=== PATIENT | male | born 1960 | race Caucasian/White ===

== ENCOUNTER → 2017-10-16 | Outpatient (CLI) | payer OTHER ==
[~2017-10-16] VITALS: Ht 180.3 cm; Wt 68.0 kg
[~2017-10-16] MED LIST: ACYCLOVIR 400400 MG PO; BACTRIM DS TAB1 EACH PO; CALCIUM CITRAT1 EA16 PO; GABAPENTIN 100100 MG PO; HYDROCHLOROTHIA25 M2 PO; ONDANSETRON HCL8 M2 PO; SERTRALINE HCL100 MG PO; VALIUM5 MG PO; VITAMIN D2000 UNIT PO; VITAMIN D31000 UNIT PO; VOLTAREN GEL 1100 G2 TOP
--- NOTE | ~2017-10-16 | HPC ---
[facility] [address] [place] [address] PAIN MANAGEMENT CONSULTATION Name: CINDYRADU FAYE Room #: REG [facility] M..#: [id number] Admission: 10/16/17 Attend Phys: Radu Schneider MD Discharge: Date of : 62 Report #: [id number] THIS REPORT FOR: //name// CC: Department of Oncology at [facility] FAM unknown MARIALUISA CHEN KAMBHAMPATI DATE OF SERVICE: 10/16/2017 CHIEF COMPLAINT: Intermittent abdominal pain and back pain occurring around the time of chemotherapy for mantle cell lymphoma. The patient is a 57-year-old gentleman with back pain, sent to us by the [facility] for evaluation. He reports of his pain clinic visit that he is not sure why he is here and he does not want medication of an opioid type to treat intractable pain from his mantle cell lymphoma. He was diagnosed in 2018 with mantle cell lymphoma. It was found after 4 or 5 years of back pain. He scores his pain as a 2/10 despite the fact that he does not use medication. He describes it as a periodic, cramping, aching sensation. What he notes is that when he gets chemotherapy, which occurs about once a month over the course of 2 days, he has pain in his lumbar region with a spasm-like pain and also a sense of nausea is accompanied by pain that he describes in his intestines his abdomen. It usually improves after the chemotherapy and he is able to return to work. He has an upcoming course of chemotherapy. Usually it is about 2 days after when these symptoms began, although last time, he was receiving his chemotherapy, he had back pain. CURRENT MEDICATIONS: Calcium citrate, diclofenac gel, gabapentin, sertraline, hydrochlorothiazide, ondansetron, acyclovir, sulfamethoxazole, cholecalciferol vitamin D. ALLERGIES: None. PAST MEDICAL HISTORY: Positive for neck surgery in 1994, left femoral injury in 1985, left knee replacement in 2016. Right groin node was diagnosed after growing in April 2017 and found to contain cells consistent with mantle cell lymphoma. He is treated also for hypertension. SOCIAL HISTORY: He is single, . Does not use tobacco, alcohol and has no history of misuse or abuse of any drugs of an illicit type. Denies use of marijuana or other illicit substance. He works at [employer], currently working filling hand. He did take some time off after his diagnosis. [facility] [address] [place] [address] PAIN MANAGEMENT CONSULTATION Name: RADU WHITE FAYE Room #: REG CLI [facility]#: [id number] Admission: 10/16/17 Attend Phys: Radu Schneider MD Discharge: Date of : 62 Report #: [id number] REVIEW OF SYSTEMS: Positive for fatigue, weakness, night sweats, decreased appetite, weight loss. He has some hearing loss, loss of appetite, constipation and oftentimes following his chemotherapy, he will have some increase in stool followed by what he describes as a sloughing of tumor tissue with yellow mucus plugging. He is having some sexual difficulties and has suffered with nervousness, depression, insomnia reactive to his cancer. PHYSICAL EXAMINATION: GENERAL: He is very pleasant, lean, 57-year-old, 5 feet 11 inches, 150 pounds. BMI is 20.9. VITAL SIGNS: Blood pressure is 137/84, heart rate is 80, respirations 14. CHEST: Clear. CARDIAC: Rhythm is regular. ABDOMEN: Soft. EXTREMITIES: There is no hepatosplenomegaly. There are no palpable masses. There are no rashes. BACK: Nontender. MUSCULOSKELETAL: Good range of motion of the lumbar spine is noted. Straight leg raising is normal. Sensory and strength testing of the lower extremities is within normal limits. Deep tendon reflexes are 2+ throughout the upper and lower extremities. IMPRESSION: Mantle cell lymphoma. Abdominal and low back pain associated with chemotherapy treatment. RECOMMENDATIONS: He may benefit from the muscle relaxant benefits as well as an anxiolysis and the relaxant properties from diazepam 5 mg taken before his chemotherapy or during. The sedative effects of the benzodiazepine were noted. He was given a prescription for 30 tablets and 2 refills. Followup visit planned only as needed. <ELECTRONICALLY SIGNED> By: Radu Schneider MD 10/20/17 1230 [id number] Radu Schneider MD /nt
[2017-10-16 14:23] VITALS: BP 137/84
== END ==
LOC: PAIN 07:29
DX: C83.10 Mantle cell lymphoma, unspecified site (principal); M54.5 Low back pain; R10.9 Unspecified abdominal pain